=== PATIENT | female | born 1995 | race Caucasian/White ===

== ENCOUNTER 2016-07-24 21:28 | Emergency (ER) | payer OTHER ==
[~2016-07-24] VITALS: Ht 162.6 cm; Wt 67.4 kg
[2016-07-24 21:40] VITALS: TEMP 36.9; Ht 162.6 cm; Wt 67.4 kg
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
[2016-07-24] MEDS ORDERED: BCPILLS PO (22:31)
[2016-07-24] MEDS ORDERED: IBUP-1050 PO (22:31)
[2016-07-24] MEDS ORDERED: ACETAMINOPHEN 500 MG TAB PO STA (22:44)
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
[2016-07-24 23:05] VITALS: BP 141/68; PULSE 84; O2SAT 98
== END 2016-07-24 23:06 | disposition home or self-care (01) ==
LOC: C.EDB 21:30 → C.EDC 23:06
DX: S09.90XA Unspecified injury of head, initial encounter (principal); V43.62XA Car passenger injured in collision with other type car in traffic accident, initial encounter; Y92.488 Other paved roadways as the place of occurrence of the external cause; Z79.3 Long term (current) use of hormonal contraceptives